=== PATIENT | male | born 1960 | race Caucasian/White ===

== ENCOUNTER → 2020-10-04 | Outpatient (CLI) | payer BC ==
--- NOTE | 2020-10-05 11:32 | ECHOF ---
Referral Reason:R01.1 Cardiac murmur MEASUREMENTS -------- HEIGHT: 185.4 cm WEIGHT: 131.5 kg BP: IVSd: 1.1 cm (0.6 - 1.1) LVIDd: 4.6 cm (3.9 - 5.3) LVPWd: 1.3 cm (0.6 - 1.1) EDV(Teich): 98 ml IVSs: 1.9 cm LVIDs: 2.6 cm LVPWs: 1.9 cm %IVS Thck: 67 % ESV(Teich): 24 ml EF(Teich): 76 % %FS: 44 % SV(Teich): 74 ml LVOT Diam: 2.3 cm IVC: 18.19 mm LALs A4C: 4.5 cm LAAs A4C: 12.5 cm LAESV A-L A4C: 30 ml LAESV MOD A4C: 28 ml LALs A2C: 5.8 cm LAAs A2C: 20.2 cm LAESV A-L A2C: 59 ml LAESV MOD A2C: 54 ml LAESV(A-L): 48 ml LAESV Index (A-L): 18.91 ml/m Ao Diam: 4.4 cm (2.0 - 3.7) LA Diam: 3.6 cm (2.7 - 3.8) AV Cusp: 1.8 cm (1.5 - 2.6) EPSS: 0.8 cm MV E Romain: 0.94 m/s MV DecT: 237 ms MV Dec Ziebach: 4.0 m/s MV A Romain: 0.86 m/s MV E/A Ratio: 1.10 MV PHT: 69 ms MR Vmax: 1.19 m/s MR maxP.65 mmHg LVOT Vmax: 1.35 m/s LVOT maxP.24 mmHg LVOT Vmax: 1.37 m/s LVOT Vmean: 1.08 m/s LVOT maxP.56 mmHg LVOT meanP.93 mmHg LVOT Env.Ti: 258 ms LVOT VTI: 28.0 cm AV Vmax: 1.91 m/s AV maxP.52 mmHg ANAI Vmax, Pt: 3.0 cm ANAI Vmax: 3.1 cm AV Vmax: 2.03 m/s AV Vmean: 1.68 m/s AV maxP.42 mmHg AV meanP.77 mmHg AV Env.Ti: 254 ms AV VTI: 42.7 cm ANAI Vmax: 2.9 cm ANAI (VTI): 2.8 cm ANAI Vmax, Pt: 2.8 cm AR Vmax: 1.50 m/s AR maxP.96 mmHg AR PHT: 905 ms AR Dec Time: 3119 ms AR Dec [place]ie[place]: 0.5 m/s TR Vmax: 1.69 m/s TR maxP.47 mmHg RAP: 5.00 mmHg RVSP: 16.47 mmHg MV EF SLOPE: 119.48 mm/s (70 - 150) MV EXCURSION: 28.46 mm (> 18.000) FINDINGS -------- This was a technically adequate study. The left ventricular size is normal. There is mild concentric left ventricular hypertrophy. Overa ll left ventricular systolic function is normal with, an EF between 55 - 60 %. The diastolic fillin g pattern is normal for the age of the patient 11.31. The right ventricle is normal in size. The left atrial size is normal. Normal LA size by volume 22+/-6 ml/m2. The right atrial size is normal. Trace amount of aortic regurgitation. There is mild aortic stenosis present. Peak/mean gradient across the Aortic Valve is 16.42mmHg / 11.77mmHg. AOV is possible Bicuspid. The mitral valve leaflets are mildly thickened. There is trace mitral regurgitation. The tricuspid valve appears structurally normal. Mild tricuspid regurgitation present. Right vent ricular systolic pressure is normal at < 35 mmHg. There is no pulmonic regurgitation present. 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 Normal inferior vena cava with normal inspiratory collapse consistent with estimated right atrial pre ssure of 5 mmHg. There is no pericardial effusion. CONCLUSIONS -------- 1. The left ventricular size is normal. 2. There is mild concentric left ventricular hypertrophy. 3. Overall left ventricular systolic function is normal with, an EF between 55 - 60 %. 4. The diastolic filling pattern is normal for the age of the patient 11.31 5. Trace amount of aortic regurgitation. 6. There is mild aortic stenosis present. 7. Peak/mean gradient across the Aortic Valve is 16.42mmHg / 11.77mmHg. 8. AOV is possible Bicuspid. 9. There is trace mitral regurgitation. 10. Mild tricuspid regurgitation present. 11. 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 12. There is no pericardial effusion. [employer] MANAGER: Charissa Jade RDCS
== END | disposition home or self-care (01) ==
LOC: RADECHMAIN 12:20
PROVIDERS: ATTEND Family Medicine
DX: I08.3 Combined rheumatic disorders of mitral, aortic and tricuspid valves (principal)
CPT/HCPCS: 93306

== ENCOUNTER → 2020-11-09 | Outpatient (CLI) | payer BC | END | disposition home or self-care (01) | LOC: LABWHC1 12:55 | PROVIDERS: ATTEND Psychiatry & Neurology Neurology | DX: H02.401 Unspecified ptosis of right eyelid (principal); H53.2 Diplopia; G70.00 Myasthenia gravis without (acute) exacerbation | CPT/HCPCS: 36415 ==

== ENCOUNTER → 2021-08-23 | Outpatient (CLI) | payer BC ==
--- NOTE | 2021-08-23 11:29 | CT ---
EXAMINATION TYPE: CT angio head DATE OF EXAM: 08/23/2021 10:24 AM COMPARISON: None. HISTORY: Nerve Palsy CT DLP: 2699 mGycm Automated exposure control for dose reduction was used. TECHNIQUE: Performed without and with IV Contrast, patient injected with 100 ml mL of Isovue 370. 3D reconstructed images are created on an independent workstation and reviewed.. FINDINGS: There is no acute intracranial hemorrhage or midline shift. Mild ventricular and sulcal prominence. M ild low-attenuation in the periventricular white matter. The calvarium is intact. Globes are intact b ilaterally. The paranasal sinuses are grossly clear. CTA images show nonvisualized suspect hypoplastic or occluded left vertebral artery. There is calcifi ed plaque along the course of the right vertebral artery which has a tortuous course. No significant focal stenosis or aneurysm is seen. 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 There i s a patent right-sided posterior communicating artery. There is small caliber but patent anterior communicating artery. There is mild calcified plaque along the distal internal carotid arteries bilaterally. There is no significant focal stenosis or aneurysm in the anterior circulation IMPRESSION: No aneurysm at the level of the [place].
== END | disposition home or self-care (01) ==
LOC: RADCTMAIN 08:01
PROVIDERS: ATTEND Ophthalmology
DX: Z12.5 Encounter for screening for malignant neoplasm of prostate (principal); H49.01 Third [oculomotor] nerve palsy, right eye; G70.00 Myasthenia gravis without (acute) exacerbation
CPT/HCPCS: 84153; 83519; 70496; 36415; Q9967

== ENCOUNTER → 2022-05-15 | Outpatient (CLI) | payer BC ==
--- NOTE | 2022-05-15 12:48 | MR ---
EXAMINATION TYPE: MR angio head wo con DATE OF EXAM: 05/15/2022 COMPARISON: CT 08/23/2021 HISTORY: Prior CT head/angio head, no prior mri, nerve palsy right eye TECHNIQUE: Utilizing 3-D [id number] intracranial MRA of the [place] was performed. FINDINGS: The vertebrobasilar and carotid systems are patent. Right vertebral artery dominant. Posterior cerebr al artery originates from the anterior circulation on the right. There is no sizable aneurysm or vasc ular malformation. IMPRESSION: 1. No evidence of vascular malformation or sizable aneurysm.
--- NOTE | 2022-05-16 07:05 | MR ---
EXAMINATION TYPE: MR brain wo con DATE OF EXAM: 05/15/2022 COMPARISON: CTA head August 23, 2021 HISTORY: Nerve palsy right eye TECHNIQUE: Multiplanar, multisequence imaging of the brain and brainstem is performed without IV cont rast. FINDINGS: Diffusion weighted images demonstrate no evidence of a recent infarct or other diffusion abnormality. There is mild ventricular and sulcal prominence. Some small scattered areas of T2 hyperintensity are redemonstrated throughout the white matter bilaterally. Midline structures demonstrate normal morphology. The craniocervical junction appears within normal limits. Normal vascular flow voids are present. Dominant right vertebral artery is again seen. Nasal septum is deviated to right of midline. The visualized sinuses are clear. Some prominence of CSF surr ounding the optic nerve sheaths bilaterally. Ventricular size stable perhaps somewhat small for a deg ree of sulcal effacement. IMPRESSION: Some findings raising concern for underlying intracranial hypertension as detailed above. Mild diffuse cerebral atrophy and chronic small vessel ischemic changes are present.
== END | disposition home or self-care (01) ==
LOC: RADMRIMAIN 10:40
PROVIDERS: ATTEND Psychiatry & Neurology Neurology
DX: H49.01 Third [oculomotor] nerve palsy, right eye (principal)
CPT/HCPCS: 70544; 70551

== ENCOUNTER 2024-05-21 03:25 | Emergency (ER) | payer BC, MEDICARE ==
[2024-05-21] MEDS: SODIUM CHLORIDE 0.9% 1,000 ML IV STA (03:52)
[2024-05-21] MEDS: ONDANSETRON 4 MG/2 ML VIAL IVP STA (03:53)
[2024-05-21] MEDS: KETOROLAC 15 MG/ML 1 ML VIAL IVP STA ×2 (03:54→07:46)
[2024-05-21] MEDS: MORPHINE SULFATE 4 MG/ML SYRINGE IVP STA ×2 (03:56→04:57)
--- NOTE | 2024-05-21 03:57 | ED ---
General Adult HPI - General Chief complaint: Urogenital Stated complaint: Back pain Time Seen by Provider: 05/21/24 03:38 Source: patient, RN notes reviewed, old records reviewed Mode of arrival: ambulatory Limitations: no limitations - History of Present Illness Initial comments: Patient is a 64-year-old male with past medical history remarkable for kidney stones, who presents emergency department complaining of kidney stone pain. States he last had kidney stones maybe 7 years ago but states this is identical pain to that time. Describes as right flank pain with radiation towards the groin. Also is having some dysuria that feels like burning with urination. Endorses nausea but no emesis. Denies chest pain. Denies any constipation or diarrhea. Denies any fevers or chills. Presents for further evaluation at this time. - Related Data Home Medications Medication Instructions Recorded Confirmed Ascorbic Acid [Vitamin C] 500 mg PO DAILY 01/03/16 01/03/16 Calcium Carbonate/Vitamin D3 1 tab PO DAILY 01/03/16 01/03/16 [Calcium 600-Vit D3 400 Caplet] Ciprofloxacin HCl [Cipro] 500 mg PO Q12HR 01/03/16 01/03/16 Finasteride [Proscar] 5 mg PO DAILY 01/03/16 01/03/16 Multivitamins, Thera [Multivitamin] 1 tab PO DAILY 01/03/16 01/03/16 Nabumetone [Relafen] 750 mg PO DAILY 01/03/16 01/03/16 Omeprazole 20 mg PO DAILY 01/03/16 01/03/16 Tamsulosin HCl [Flomax] 0.4 mg PO DAILY 01/03/16 01/03/16 Vitamin A [Vitamin A (8,000 Units 8,000 unit PO DAILY 01/03/16 01/03/16 = 2,400 MCG)] Previous Rx's Medication Instructions Recorded Hydrocodone/Acetaminophen [[place] 1 each PO Q6HR PRN #15 tab 01/04/16 5-325] Ketorolac [Toradol] 10 mg PO Q8HR PRN 5 Days #15 tab 05/21/24 Tamsulosin [Flomax] 0.4 mg PO DAILY 14 Days #14 cap 05/21/24 Allergies Allergy/AdvReac Type Severity Reaction Status Date / Time No Known Allergies Allergy Verified 05/21/24 03:30 Review of Systems ROS Statement: Those systems with pertinent positive or pertinent negative responses have been documented in the HPI. Review of Systems: CONST: Denies fever EYES: Denies blurry vision ENT: Denies nasal congestion C/V: Denies Chest pain RESP: Denies shortness of breath GI: Endorses right flank pain : Denies dysuria SKIN: Denies rash. MSK: Denies joint pain. NEURO: Denies headache ROS Other: All systems not noted in ROS Statement are negative. Past Medical History Past Medical History: No Reported History History of Any Multi-Drug Resistant Organisms: None Reported Past Surgical History: No Surgical Hx Reported Past Psychological History: No Psychological Hx Reported Smoking Status: Never smoker Past Alcohol Use History: None Reported Past Drug Use History: None Reported - Past Family History Mother Family Medical History: Cancer, Diabetes Mellitus Additional Family Medical History / Comment(s): Breast Cancer General Exam - General Exam Comments Initial Comments: General: Appears in mild to moderate distress secondary to abdominal pain. HEAD: Normal with no signs of head trauma. EYES: EOMI ENT: Hearing grossly intact, normal oropharynx. RESPIRATORY: Clear breath sounds bilaterally. No wheezes, rales, or rhonchi. C/V: Regular rate and rhythm. S1 and S2 auscultated, no edema, peripheral pulses 2+ and intact throughout ABD: Abdomen soft, nondistended. Tender to palpation over the right flank. No guarding or rebound tenderness. No peritoneal signs. No significant CVA tenderness to percussion. EXT: No obvious deformity. SKIN: No rashes or lesions observed on exposed skin. NEURO: Alert and oriented x 4. Limitations: no limitations Course Vital Signs 05/21/24 05/21/24 05/21/24 03:28 04:00 04:56 Temperature 98.4 F Pulse Rate 74 70 75 Respiratory 16 18 18 Rate Blood Pressure 151/75 158/90 142/83 O2 Sat by Pulse 98 98 97 Oximetry 05/21/24 06:00 Temperature Pulse Rate 71 Respiratory 18 Rate Blood Pressure 145/86 O2 Sat by Pulse 97 Oximetry Medical Decision Making - Medical Decision Making Was pt. sent in by a medical professional or institution (, PA, PRODUCTION TEAM MEMBER, urgent care, hospital, or snf...) When possible be specific @ -No Did you speak to anyone other than the patient for history (EMS, parent, family, police, friend...)? What history was obtained from this source @ -No Did you review nursing and triage notes (agree or disagree)? Why? @ -I reviewed and agree with nursing and triage notes Were old charts reviewed (outside hosp., previous admission, EMS record, old EKG, old radiological studies, urgent care reports/EKG's, snf records)? Report findings @ -No old charts were reviewed Differential Diagnosis (chest pain, altered mental status, abdominal pain women, abdominal pain men, vaginal bleeding, weakness, fever, dyspnea, syncope, headache, dizziness, GI bleed, back pain, seizure, CVA, palpatations, mental he alth, musculoskeletal)? @ -Differential Abdominal Pain Men: Appendicitis, cholecystitis, diverticulosis, ischemic bowel, pancreatitis, hepatitis, UTI, gastroenteritis, AAA, incarcerated hernia, bowel obstruction, constipation, inflammatory bowel, hepatitis, peptic ulcer disease, splenic infarction, perforated viscus, testicular torsion, this is not meant to be an all-inclusive list EKG interpreted by me (3pts min.). @ -None done X-rays interpreted by me (1pt min.). @ -None done CT interpreted by me (1pt min.). @ -CT imaging reveals a right sided ureteral lithiasis distally that is approx imately 3 mm in size with mild hydroureter and mild hydronephrosis. U/S interpreted by me (1pt. min.). @ -None done What testing was considered but not performed or refused? (CT, X-rays, U/S, labs)? Why? @ -None What meds were considered but not given or refused? Why? @ -None Did you discuss the management of the patient with other professionals (professionals i.e. , PA, PRODUCTION TEAM MEMBER, lab, RT, psych nurse, social media strategist, business development, teacher, nuclear medicine officer, caser)? Give summary @ -No Was smoking cessation discussed for >3mins.? @ -No Was critical care preformed (if so, how long)? @ -No Were there social determinants of health that impacted care today? How? (Homelessness, low income, unemployed, alcoholism, drug addiction, transportation, low edu. Level, literacy, decrease access to med. care, long term, rehab)? @ -No Was there de-escalation of care discussed even if they declined (Discuss DNR or withdrawal of care, Hospice)? DNR status @ -No What co-morbidities impacted this encounter? (DM, HTN, Smoking, COPD, CAD, Cancer, CVA, ARF, Chemo, Hep., AIDS, mental health diagnosis, sleep apnea, morbid obesity)? @ -Kidney stones Was patient admitted / discharged? Hospital course, mention meds given and route, prescriptions, significant lab abnormalities, going to OR and other pertinent info. @ -Patient presents with what I suspect to be kidney stones. We will obtain CT imaging as well as abdominal laboratory studies. Patient will be treated with analgesia medications through the IV as well as IV Zofran and fluids. He was in agreement this plan. Vital signs are within acceptable limits. CT imaging reveals a distal right ureteral lithiasis that is 3 mm in size. Patient does have blood in his urine but otherwise workup is unremarkable. On reevaluation, pain is improved. Discussed results with patient. He will be discharged home with Flomax, analgesia medications, ODT Zofran. Also follow-up instructions for urology. Patient was in agreement this plan. Strict return precautions discussed. I instructed the patient to follow up with their PCP in the next 1-3 days. I explained that the patient should return to the emergency department if they experience any worsening symptoms. Strict return precautions were discussed with the patient. The patient expressed understanding of these instructions. I answered all questions that the patient had. The patient was discharged home in good condition with their prescriptions and follow up information. Undiagnosed new problem with uncertain prognosis? @ -No Drug Therapy requiring intensive monitoring for toxicity (Heparin, Nitro, Insulin, Cardizem)? @ -No Were any procedures done? @ -No Diagnosis/symptom? @ -Ureterolithiasis Acute, or Chronic, or Acute on Chronic? @ -Acute Uncomplicated (without systemic symptoms) or Complicated (systemic symptoms)? @ -Complicated Side effects of treatment? @ -None Exacerbation, Progression, or Severe Exacerbation] @ -No Poses a threat to life or bodily function? @ -Unlikely - Lab Data Result diagrams: 05/21/24 03:38 05/21/24 03:38 Lab Results 05/21/24 05/21/24 05/21/24 Range/Units 03:38 03:38 03:38 WBC 9.8 (3.8-10.6) k/uL RBC 4.83 (4.30-5.90) m/uL Hgb 14.0 (13.0-17.5) gm/dL Hct 43.3 (39.0-53.0) % MCV 89.7 (80.0-100.0) fL MCH 28.9 (25.0-35.0) pg MCHC 32.3 (31.0-37.0) g/dL RDW 12.7 (11.5-15.5) % Plt Count 188 (150-450) k/uL MPV 6.9 Neutrophils % 79 % Lymphocytes % 16 % Monocytes % 3 % Eosinophils % 1 % Basophils % 0 % Neutrophils # 7.8 H (1.3-7.7) k/uL Lymphocytes # 1.5 (1.0-4.8) k/uL Monocytes # 0.3 (0-1.0) k/uL Eosinophils # 0.1 (0-0.7) k/uL Basophils # 0.0 (0-0.2) k/uL Sodium 138 (137-145) mmol/L Potassium 4.5 (3.5-5.1) mmol/L Chloride 102 (98-107) mmol/L Carbon Dioxide 26 (22-30) mmol/L Anion Gap 10 mmol/L BUN 20 (9-20) mg/dL Creatinine 1.25 (0.66-1.25) mg/dL Est GFR (CKD-EPI)AfAm 70 (>60 ml/min/1.73 sqM) Est GFR (CKD-EPI)NonAf 61 (>60 ml/min/1.73 sqM) Glucose 171 H (74-99) mg/dL Calcium 9.7 (8.4-10.2) mg/dL Total Bilirubin 1.4 H (0.2-1.3) mg/dL AST 42 (17-59) U/L ALT 45 (4-49) U/L Alkaline Phosphatase 103 (38-126) U/L Total Protein 8.2 (6.3-8.2) g/dL Albumin 4.8 (3.5-5.0) g/dL Urine Color Yellow Urine Appearance Clear (Clear) Urine pH 5.5 (5.0-8.0) Ur Specific [place] 1.031 (1.001-1.035) Urine Protein Trace H (Negative) Urine Glucose (UA) Negative (Negative) Urine Ketones 2+ H (Negative) Urine Blood Trace H (Negative) Urine Nitrite Negative (Negative) Urine Bilirubin Negative (Negative) Urine Urobilinogen <2.0 (<2.0) mg/dL Ur Leukocyte Esterase Negative (Negative) Urine RBC 10 H (0-5) /hpf Urine WBC <1 (0-5) /hpf Hyaline Casts 1 (0-2) /lpf Urine Mucus Rare H (None) /hpf Urine Yeast (Budding) Rare H (None) /hpf - EKG Data -: EKG Interpreted by Me Disposition Clinical Impression: Ureterolithiasis Disposition: HOME SELF-CARE Condition: Good Instructions (If sedation given, give patient instructions): Kidney Stones (ED) Prescriptions: Tamsulosin [Flomax] 0.4 mg PO DAILY 14 Days #14 cap Ketorolac [Toradol] 10 mg PO Q8HR PRN 5 Days #15 tab PRN Reason: Pain Is patient prescribed a controlled substance at d/c from ED?: Yes When asked, does pt state using other controlled substances?: No If prescribed controlled substance>3 days was MAPS reviewed?: Prescribed <3 Days If opioid is for acute pain is fill amount 7 days or less?: Yes If Rx opioid, was Start Talking consent form obtained?: Yes Referrals: Flaco Torres DO [Primary Care Provider] - 1-2 days Toñito ePpe MD [STAFF PHYSICIAN] - 1-2 days Time of Disposition: 06:40
[2024-05-21 04:08] LABS: Basophils % (A) 0 %; Eosinophils # (A) 0.1 k/uL (0-0.7); Eosinophils % (A) 1 %; HCT 43.3 % (39.0-53.0); Lymphocytes # (A) 1.5 k/uL (1.0-4.8); Lymphocytes % (A) 16 %; MCH 28.9 pg (25.0-35.0); MCHC 32.3 g/dL (31.0-37.0); MCV 89.7 fL (80.0-100.0); Mean Platelet Volume 6.9; Monocytes # (A) 0.3 k/uL (0-1.0); Monocytes % (A) 3 %; Neutrophils # (A) 7.8 k/uL (1.3-7.7); Neutrophils % (A) 79 %; Platelet Count 188 k/uL (150-450); RBC 4.83 m/uL (4.30-5.90); RDW 12.7 % (11.5-15.5); WBC 9.8 k/uL (3.8-10.6)
[2024-05-21 04:17] LABS: Appearance,Urine Clear (Clear); Bilirubin,Urine Negative (Negative); Blood,Urine Trace (Negative); Budding Yeast,Urine Rare /hpf; Color,Urine Yellow; Glucose,Urine (UA) Negative (Negative); Hyaline Casts,Urine 1 /lpf (0-2); Ketones,Urine 2+ (Negative); Leukocyte Esterase,Urine Negative (Negative); Mucus,Urine Rare /hpf; Nitrite,Urine Negative (Negative); PH, Urine 5.5 (5.0-8.0); Protein,Urine Trace (Negative); RBC,Urine 10 /hpf (0-5); Specific Gravity,Urine 1.031 (1.001-1.035); Urobilinogen,Urine <2.0 mg/dL (<2.0); WBC,Urine <1 /hpf (0-5)
[2024-05-21 04:43] LABS: ALT 45 U/L (4-49); AST 42 U/L (17-59); African American GFR (CKD) 70 (>60 ml/min/1.73 sqM); Albumin 4.8 g/dL (3.5-5.0); Alkaline Phosphatase 103 U/L (38-126); Anion Gap 10 mmol/L; Blood Urea Nitrogen 20 mg/dL (9-20); Calcium 9.7 mg/dL (8.4-10.2); Carbon Dioxide 26 mmol/L (22-30); Chloride 102 mmol/L (98-107); Glucose 171 mg/dL (74-99); Non-African American GFR(CKD) 61 (>60 ml/min/1.73 sqM); Potassium 4.5 mmol/L (3.5-5.1); Sodium 138 mmol/L (137-145); Total Bilirubin 1.4 mg/dL (0.2-1.3); Total Protein 8.2 g/dL (6.3-8.2)
[2024-05-21 04:45] VITALS: RESP 18
--- NOTE | 2024-05-21 07:31 | CT ---
EXAMINATION TYPE: CT abdomen pelvis wo con DATE OF EXAM: 05/21/2024 4:23 AM COMPARISON: 01/03/2016 CLINICAL INDICATION: Male, 64 years old with history of flank pain, burning urination, history of kid milagros stones TECHNIQUE: Axial images were obtained from above the diaphragm to the pubic rami in the axial plane a t 5 mm thick sections. Reconstructed images are reviewed on the computer in the coronal plane. CONTRAST: mL of . Study performed DLP: 1640 mGycm, Automated exposure control for dose reduction was used. FINDINGS: Limited CT sections are obtained the lung bases. The lung bases are clear. There is elevation of th e left diaphragm. CT ABDOMEN: Liver: Normal Spleen: Normal Pancreas: Normal Adrenal glands: The adrenal glands are normal. Gallbladder: Normal Kidneys: No masses are evident. Mild right hydronephrosis and hydroureter is present. No cysts are pr esent. There is a nonobstructing 0.4 cm calcification superior pole left kidney. There is a 0.3 cm c alcification at the right ureterovesical junction within the distal right ureter. Urinary bladder is decompressed. Aorta: Vascular calcification is within the aorta. Inferior vena cava: Normal. CT PELVIS: Loops of bowel within the abdomen and pelvis are normal. This study is without oral contrast limi ting evaluation Appendix: Not visualized. No dilated tubular structure or inflammatory change evident. Urinary bladder: Decompressed. Genitourinary structures: Prostate is somewhat prominent. Osseous structures: No suspicious lytic or sclerotic lesions. IMPRESSION: 1. 0.3 cm nonobstructing distal right ureteral stone at the right ureterovesical junction. Mild righ t hydronephrosis and hydroureter is present. 2. Nonobstructing 0.4 cm superior pole left renal stone [facility] Davis Gleason, , 05/21/2024 7:29 AM
[2024-05-21] MEDS: ONDANSETRON 4 MG ODT STARTER PACK 2 TAB BTL PO STA (07:49)
[2024-05-21] MEDS: ACET/COD 300 MG/30 MG STARTER PACK 6 TAB BTL PO STA (07:49)
[2024-05-21 07:53] VITALS: BP 146/87; PULSE 85; TEMP 98
== END 2024-05-21 07:53 | disposition home or self-care (01) ==
LOC: EC 03:25
DX: N13.2 Hydronephrosis with renal and ureteral calculous obstruction (principal)
CPT/HCPCS: 36415; 80053; 85025; 81001; 74176; 99284; 96374; 96375 ×2; 96376 ×2; 96361; J2270; J2405; J1885; S0119